=== PATIENT | male | born 1960 | race American Indian/Alaskan Native ===

== ENCOUNTER 2020-01-17 12:51 | Emergency (ER) | payer SELFPAY ==
[2020-01-17] MEDS ORDERED: ONDANSETRON 4 MG/2 ML INJ IV ONE ×2 (15:07→20:13)
[2020-01-17] MEDS ORDERED: MORPHINE 4 MG/1 ML INJ IV ONE (15:07)
[2020-01-17] MEDS ORDERED: KETOROLAC 30 MG/1 ML INJ IV ONE (15:07)
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
[2020-01-17 17:42] LABS: Alanine Aminotransferase 33 units/L (7-56); Albumin 3.8 g/dL (3.9-5); Blood Urea Nitrogen 16 mg/dL (9-20); Calcium 9.1 mg/dL (8.4-10.2); Hemolysis Index 5
[2020-01-17 17:45] LABS: BUN/Creatinine Ratio 23
[2020-01-17 17:46] LABS: Basophils % (Auto) 0.5 % (0.0-1.8); Eosinophils % (Auto) 1.1 % (0.0-4.3); Hematocrit 38.2 % (35.5-45.6); Lymphocytes # (Auto) 0.7 K/mm3 (1.2-5.4); Lymphocytes % (Auto) 16.7 % (13.4-35.0); Mean Corpuscular HGB Conc 34 % (32-34); Mean Corpuscular Volume 94 fl (84-94); Monocytes # (Auto) 0.3 K/mm3 (0.0-0.8); Monocytes % (Auto) 5.8 % (0.0-7.3); Platelet Count 217 K/mm3 (140-440); Red Blood Count 4.05 M/mm3 (3.65-5.03); Red Cell Distribution Width 14.2 % (13.2-15.2)
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
[2020-01-17] MEDS ORDERED: HYDROmorphone 1 MG/1 ML INJ IV ONE (20:13)
[2020-01-17 21:24] VITALS: BP 144/91
== END 2020-01-17 21:23 | disposition other institution (70) ==
LOC: ED 12:51
DX: S22.32XA Fracture of one rib, left side, initial encounter for closed fracture (principal); S32.009A Unspecified fracture of unspecified lumbar vertebra, initial encounter for closed fracture; S27.329A Contusion of lung, unspecified, initial encounter; J94.2 Hemothorax; Y04.8XXA Assault by other bodily force, initial encounter; Y93.89 Activity, other specified; Y92.89 Other specified places as the place of occurrence of the external cause; Y99.8 Other external cause status
CPT/HCPCS: 36415; 71101; 71260; 72100; 74177; 80053; 84484; 85025; 93005; 96374; 96375; 96376; 99285; J1170; J1885; J2270; J2405; Q9967